=== PATIENT | male | born 1985 | race Caucasian/White ===

== ENCOUNTER 2020-12-12 12:17 | Emergency (ER) | payer OTHER, SELFPAY ==
[2020-12-12 12:28] VITALS: BP 148/82; PULSE 77; RESP 20; TEMP 36.4; O2SAT 98
--- NOTE | 2020-12-12 12:30 | ED.GENADULT ---
HPI - General Adult General Chief complaint: Ear Stated complaint: L/ear pain Time Seen by Provider: 12/12/20 12:30 Source: patient and RN notes reviewed Mode of arrival: ambulatory Limitations: no limitations History of Present Illness HPI narrative: 35-year-old male presents with complaints of left otalgia and decrease hearing for the past 5 days. Dustin reports increase pain with clog feeling in LT ear over the past 24 hours. No treatment. Dustin reports he has been cleaning ears with q-tips and wears ear plugs at work. Denies drainage or tinnitus. Denies injury to ear. Denies rhinorrhea and nasal congestion. Denies cough. No high fevers or chills. Denies nausea, vomiting, and dizziness. The patient reports he have not been diagnosed with COVID-19. The patient reports he is not waiting for the results of a COVID-19 lab test. The patient reports he do not have fever, weakness, or fatigue. The patient reports he do not have a new or worsening cough or shortness of breath. Denies chest pain. The patient reports he do not have any loss of taste, sore throat, abdominal pain, and diarrhea. Tolerating po intake well. Denies recent traveling. Denies concerns for COVID-19 or exposures been home with limited outdoor exposure except for essential household needs, work, and return home. At this time, patient is not suspected of having COVID-19. Some parts of this dictation were generated by voice recognition software and may contain typographical and/or grammatical inaccuracies. Related Data Home Medications Medication Instructions Recorded Confirmed Fish Oil DAILY 12/12/20 bupropion HCl 150 mg PO DAILY 12/12/20 12/12/20 buspirone 15 mg DAILY 12/12/20 12/12/20 escitalopram oxalate 20 mg DAILY 12/12/20 12/12/20 lorazepam 1 mg BID PRN 12/12/20 12/12/20 Allergies Allergy/AdvReac Type Severity Reaction Status Date / Time hydroxyzine Allergy Unknown Rash Verified 12/12/20 12:20 Review of Systems Review of Systems: Narrative: CONSTITUTIONAL: Denies fever, chills, sweats. EYES: Denies visual changes, redness, discharge. ENT: Denies sore throat, ear drainage, rhinorrhea, congestion. Complains of LT otalgia, decrease hearing. CARDIOVASCULAR: Denies chest pain, palpitations, edema. RESPIRATORY: Denies dyspnea, wheezing, cough. GASTROINTESTINAL: Denies abdominal pain, nausea, vomiting, diarrhea. SKIN: Denies rash or itching. MUSCULOSKELETAL: Denies acute back pain, joint pain, or myalgia. NEUROLOGIC: Denies numbness or focal weakness. PSYCHIATRIC: Denies anxiety or depression. All systems reviewed & are unremarkable except as noted in HPI and below. [facility] Past Medical History Medical History Depression Vitamin D deficiency Surgical History Surgical History (Updated 12/12/20 @ 19:25 by MIKE Sommer) History of tympanostomy as a kid Family History Family History Mother Patient's mother is in good health Father Patient's father is in good health Sibling Patient's brother is in good health Social History Social History Smoking status: Never smoker Tobacco type: cigarettes Second hand tobacco smoke exposure: No Alcohol intake: current Substance use: never Living arrangements: with family Additional living arrangements comments: spouse Occupation/Education: occupation Gender identity (if verbalized by the patient): Male Sexual Orientation (if Verbalized by the Patient): Straight or Heterosexual Comments At time of signature, agree with nurse past medical, surgical, social, and family history. There is relevant patient's past medical history pertinent to the presenting complaint, no relevant family history pertinent to the presenting complaint. Exam Narrative: Exam Narrative: GENERAL: This is a
== END 2020-12-12 12:55 | disposition home or self-care (01) ==
PROVIDERS: Emergency Provider Nurse Practitioner Family; PCP Internal Medicine
DX: H66.012 Acute suppurative otitis media with spontaneous rupture of ear drum, left ear (principal); F32.9 Major depressive disorder, single episode, unspecified; F41.9 Anxiety disorder, unspecified
CPT/HCPCS: 99213; G0463

== ENCOUNTER 2021-03-13 17:17 | Outpatient (CLI) | payer OTHER, SELFPAY | END 2021-03-13 17:18 | disposition home or self-care (01) | LOC: ANHCOVIDVC 17:18 | PROVIDERS: PCP Internal Medicine | DX: Z23 Encounter for immunization (principal) | CPT/HCPCS: 0001A; 91300 ==

== ENCOUNTER 2021-04-19 16:59 | Outpatient (CLI) | payer OTHER, SELFPAY | END 2021-04-19 17:00 | disposition home or self-care (01) | LOC: ANHCOVIDVC 16:59 | PROVIDERS: PCP Internal Medicine | DX: Z23 Encounter for immunization (principal) | CPT/HCPCS: 0002A; 91300 ==

== ENCOUNTER 2023-09-04 09:23 | Outpatient (CLI) | payer OTHER, SELFPAY ==
--- NOTE | 2023-09-04 09:57 | EST_ITS ---
Patient Info Name: Dustin Steinberg Age: 38 years : 1985 Gender: Male Ht: 72 in Wt: 250 lbs BSA: 2.44 m2 HR: 76 bpm BP: 128 / 77 mmHg Heart Rhythm: Sinus Rhythm Exam Date: 09/04/2023 10:05 AM Exam Location: [facility] Stress Patient Status: Outpatient Admit Date: 09/04/2023 Staff Ordering Physician: Lj Spear DO Attending Provider: Lj Spear DO Exercise Technologist: Molly Sibley CT Exercise Physician: Jn Anthony DO Exam Type: CA stress test treadmill Study Info Indications R07.89 - Other chest pain A treadmill exercise stress test was performed. Summary 1. 1. Negative [place] exercise stress test for ischemic ST changes by ECG criteria. 2. 2. Good functional capacity, achieving 11 METs of workload. 3. 3. Hypertensive response to exercise. 4. 4. Appropriate HR response to exercise. 5. 5. Appropriate HR recovery at 1 minute post exercise. 6. 6. No imaging with stress testing. 7. 7. Patient informed of the above results. Protocol: [place] Stress ECG Details Stage: REST Duration (min): 1 min : 10 sec Speed (mph): 0.0 Grade (%): 0 HR (bpm): 74 SBP (mmHg): 128 DBP (mmHg): 77 METS: --- Stage: REST Duration (min): 4 min : 52 sec Speed (mph): 0.0 Grade (%): 0 HR (bpm): 77 SBP (mmHg): 128 DBP (mmHg): 77 METS: --- Stage: STAGE 1 Duration (min): 1 min : 0 sec Speed (mph): 1.7 Grade (%): 10 HR (bpm): 97 SBP (mmHg): 128 DBP (mmHg): 77 METS: --- Stage: STAGE 1 Duration (min): 2 min : 0 sec Speed (mph): 1.7 Grade (%): 10 HR (bpm): 100 SBP (mmHg): 128 DBP (mmHg): 77 METS: --- Stage: STAGE 1 Duration (min): 3 min : 0 sec Speed (mph): 1.7 Grade (%): 10 HR (bpm): 102 SBP (mmHg): 143 DBP (mmHg): 79 METS: --- Stage: STAGE 2 Duration (min): 1 min : 0 sec Speed (mph): 2.5 Grade (%): 12 HR (bpm): 113 SBP (mmHg): 143 DBP (mmHg): 79 METS: --- Stage: STAGE 2 Duration (min): 2 min : 0 sec Speed (mph): 2.5 Grade (%): 12 HR (bpm): 121 SBP (mmHg): 188 DBP (mmHg): 60 METS: --- Stage: STAGE 2 Duration (min): 3 min : 0 sec Speed (mph): 2.5 Grade (%): 12 HR (bpm): 121 SBP (mmHg): 188 DBP (mmHg): 60 METS: --- Stage: STAGE 3 Duration (min): 1 min : 0 sec Speed (mph): 3.4 Grade (%): 14 HR (bpm): 137 SBP (mmHg): 195 DBP (mmHg): 75 METS: --- Stage: STAGE 3 Duration (min): 2 min : 0 sec Speed (mph): 3.4 Grade (%): 14 HR (bpm): 138 SBP (mmHg): 195 DBP (mmHg): 75 METS: --- Stage: STAGE 3 Duration (min): 3 min : 0 sec Speed (mph): 3.4 Grade (%): 14 HR (bpm): 146 SBP (mmHg): 212 DBP (mmHg): 76 METS: --- Stage: STAGE 4 Duration (min): 0 min : 54 sec Speed (mph): 4.2 Grade (%): 16 HR (bpm): 146 SBP (mmHg): 212 DBP (mmHg): 76 METS: --- Stage: RECOVERY Duration (min): 0 min : 5 sec Speed (mph): 1.5 Grade (%): 0 HR (bpm):
== END 2023-09-04 09:24 | disposition home or self-care (01) ==
PROVIDERS: PCP Internal Medicine; Visit Provider Internal Medicine
DX: R07.9 Chest pain, unspecified (principal)
CPT/HCPCS: 93017

== ENCOUNTER 2025-01-03 16:28 | Emergency (ER) | payer OTHER, SELFPAY ==
--- OUTSIDE RECORDS SUMMARY | 2025-01-03 16:30 | XMS_ITS | Clinical Summary ---
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 Gender Identity Not on file Sexual Orientation Not on file Plan of Treatment Health Maintenance Due Date Last Done Comments Annual Physical 1986 Hepatitis C 2001 DTaP, Tdap and Td Vaccines ( 1 - Tdap) 2002 Hepatitis B Vaccines (1 of 3 - 19+ 3-dose series) 2002 COVID-19 Vaccine (2023-2 5 season) 2024 Influenza Adult (#1) 2024 HPV Vaccines Aged Out No longer eligi ble based on patient's age to complete this topic Meningococcal B Vaccine Aged Out No l onger eligible based on patient's age to complete this topic Meningococcal Vaccine Aged Out No naty velma eligible based on patient's age to complete this topic Pneumococcal Vaccine: Pediat rics (0 to 5 Years) and At-Risk Patients (6 to 64 Years) Aged Out No longer eligible b ased on patient's age to complete this topic RSV Immunizations Under 20 Months Aged Out No longer eligible based on patient's age to complete this topic
--- OUTSIDE RECORDS SUMMARY | 2025-01-03 16:30 | XMS_ITS | Referral Summary ---
Author Organization [facility] [address] [facility] [address] Address [address] [place] [address] Care Team Providers Care Grade Foreman Name Role Phone Lj Spear DO Primary Care Provider [phone]- [phone] Allergies No known active allergies Medications buPROPion XL (WELLBUTRIN XL) 150 mg 24 hr tablet 1 Active escitalopram (LEXAPRO) 20 mg tablet 1 Active ondansetron ODT (Zofran ODT) 4 mg disintegrating tabletIndications:N ausea Take 1 tablet (4 mg total) by mouth every 8 (eight) hours as needed for nausea or vomiting 12 tablet 1 Active Active Problems No known active problems Social History Tobacco Use Types Packs/Day Years Used Date Smoking Tobacco: Never Smokeless Tobacco: Never Personal Safety Answer Date Recorded Getting School Help Needed Not on file 01/26 Sex and Gender Information Value Date Recorded Sex Assigned at Not on file 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 Gender Identity Not on file Sexual Orientation Not on file Last Filed Vital Signs Vital Sign Reading Time Taken Comments Blood Pressure 148/90 04/10/2021 5:13 PM CDT Pulse 79 04/10/2021 5:13 PM CDT Temperature 36.8 ??C (98.3 ??F) 04/10/2021 5:13 PM CD T Respiratory Rate 18 04/10/2021 5:13 PM CDT Oxygen Saturation 98% 04/10/2021 5:13 PM CDT Inhaled Oxygen Concentration - - Weight 107.5 kg (237 lb) 04/10/2021 5:13 PM CDT Height 185.4 cm (6' 1 ) 04/10/2021 5:13 PM CDT Body Mass Index 31.27 04/10/2021 5:13 PM CDT Plan of Treatment Not on file Insurance [facility] H[facility]/PPO Address: [address] [place] [address] [facility] HMO/PPO Address: [address] [address] [place] [address] Care Teams Grade Foreman Relationship Specialty Start Date End Date Lj Spear DO PCP - General Internal Medicine 04/10/21
--- OUTSIDE RECORDS SUMMARY | 2025-01-03 16:30 | XMS_ITS | Clinical Summary ---
Author Organization [facility] [place] [address] [facility] [address] Address [address] [place] [address] Care Team Providers Care Gang Pusher Name Role Phone Lj Spear DO Primary Care Provider [phone]- [phone] Allergies No known active allergies Medications buPROPion XL (WELLBUTRIN XL) 150 mg 24 hr tablet 1 Active escitalopram (LEXAPRO) 20 mg tablet 1 Active ondansetron ODT (Zofran ODT) 4 mg disintegrating tabletIndications:N ausea Take 1 tablet (4 mg total) by mouth every 8 (eight) hours as needed for nausea or vomiting 12 tablet 1 Active Active Problems No known active problems Surgical History Surgery Date Site/Laterality Comments OTHER SURGICAL HISTORY No pertinent surgical history Medical History Medical History Date Comments Depression Social History Tobacco Use Types Packs/Day Years Used Date Smoking Tobacco: Never Smokeless Tobacco: Never Personal Safety Answer Date Recorded Getting School Help Needed Not on file 01/26 Sex and Gender Information Value Date Recorded Sex Assigned at Not on file 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
[2025-01-03 17:25] VITALS: BP 134/77; PULSE 67; RESP 18; TEMP 36.4; O2SAT 98
--- NOTE | 2025-01-03 18:19 | ED.URI ---
HPI - URI/Sore Throat General Chief Complaint: Upper Respiratory Infection Stated Complaint: sinus infection Time Seen by Provider: 01/03/25 18:19 Source: patient, RN notes reviewed and old records reviewed Mode of arrival: ambulatory Limitations: no limitations History of Present Illness HPI Narrative: 10 day sinus drainage, pain ,pressure , postnasal drainage. He has been using [id number] medications intermittently for his symptoms with moderate relief. He reports that in the middle of his illness he felt as though he is getting better, but over the past couple days has felt much worse than usual. He reports over the past few days he has been more tired than normal. He denies any injury or trauma. He is not in any distress Related Data Home Medications ?Medication ?Instructions ?Recorded ?Confirmed ?Last Taken ?Type escitalopram oxalate 20 mg tablet 20 mg DAILY 12/12/20 11/28/24 Unknown History lorazepam 1 mg tablet 1 mg BID PRN Anxiety 12/12/20 11/28/24 Unknown History Allergies Allergy/AdvReac Type Severity Reaction Status Date / Time Hydroxizine Allergy Intermediate Agitated Uncoded 01/03/25 18:23 Review of Systems Review of Systems: All systems reviewed & are unremarkable except as noted in HPI and below Constitutional: Constitutional: Reports as per HPI, Reports no additional constitutional complaints, Reports headache(s) and Reports lethargy ENT: Reports system reviewed and no additional complaints, except as documented, Reports nasal congestion, Reports nasal discharge, Reports sinus pain, Reports sinus pressure and Reports sore throat Cardiovascular: Cardiovascular: Reports no additional cardiovascular complaints Respiratory: Respiratory: Reports no additional respiratory complaints and Reports cough Gastrointestinal: Gastrointestinal: Reports no additional gastrointestinal complaints [facility] Past Medical History Medical History GERD (gastroesophageal reflux disease) Bronchitis Pneumonia Hypertension Chicken pox Left knee pain Vitamin D deficiency Depression Surgical History Surgical History History of tympanostomy as a kid Family History Family History Mother Patient's mother is in good health Father Patient's father is in good health Sibling Patient's brother is in good health Social History Social History (Reviewed 01/03/25 @ 18:26 by JONATHON Szymanski Smoking status: Never smoker Tobacco type: cigarettes Second hand tobacco smoke exposure: No Alcohol intake: current Substance use: never Lack of Transportation: No Lack of Food: Never True Current Housing: I Have Housing Concerned About Future Housing: No Difficulty Paying Gas/Electric Bills: No Difficulty Paying for Meds: No Currently Unemployed: No Education: Bachelor's Degree Difficulty w/ Childcare or Family Care: No Living arrangements: with family Additional living arrangements comments: spouse Occupation/Education: occupation Gender identity (if verbalized by the patient): Male Sexual Orientation (if Verbalized by the Patient): Straight or Heterosexual Comments At the time of my signature, I reviewed and agree with the nursing past medical, surgical, social, and family history. There is no relevant family history pertinent to the patient complaint. Exam Const: General: cooperative, no acute distress, alert and awake Orientation/consciousness: oriented to person, oriented to place and oriented to time HENMT: Head: normal to inspection Ears: TM abnormal dull bilateral Face and sinus: sinus tenderness Mouth: Yes moist mucous membranes Throat: posterior oropharynx abnormal erythema and postnasal drainage Resp: Effort & Inspection: normal respiratory effort and able to speak in complete sentences Auscultation: clear to auscultation bilaterally, no crackles, no rales, no rhonchi and no wheezes Cardio: Palpation: normal PMI Rate: regular rate Rhythm: regular rhythm Heart sounds: S1 normal heart sound present and S2 normal heart sound present Neuro: General: oriented to person, oriented to place and oriented to time Cranial nerves: Yes CN's II-XII intact bilaterally Psych: Appearance: grossly normal Thought process: Normal thought process present Insight: Good insight present (Psych) Judgement: Good judgement present (Psych) Course Course Level of Care: Express Care Visit Vital Signs Vital signs: Vital Signs Temperature 97.6 F 01/03/25 17:25 Pulse Rate 67 01/03/25 17:25 Respiratory Rate 18 01/03/25 17:25 Blood Pressure 134/77 01/03/25 17:25 Pulse Oximetry 98 01/03/25 17:25 Oxygen Delivery Room Air 01/03/25 17:25 Temperature 97.6 F 01/03/25 17:25 Pulse Rate 67 01/03/25 17:25 Respiratory Rate 18 01/03/25 17:25 Blood Pressure 134/77 01/03/25 17:25 Pulse Oximetry 98 01/03/25 17:25 Oxygen Delivery Room Air 01/03/25 17:25 Reviewed MDM - URI/Sore Throat MDM Narrative Medical decision making narrative: history and exam consistent with sinusitis. Patient is nontoxic appearing, stable for discharge home on p.o. antibiotic therapy. Discharge instructions reviewed with patient, as well as provided in writing per nursing staff. The instructions also include specific and strict return/GO TO THE ER as well as f/u information. All questions have been answered, and the patient deny any further questions with discharge and discharge plan. Some parts of this dictation were generated by voice recognition software and may contain typographical and/or grammatical inaccuracies. Differential Diagnosis Differential diagnosis: Likely upper respiratory infection, otitis media, sinusitis and viral infection Medical Records Attestation: I reviewed the patient's medical records. Discharge Plan Discharge Clinical Impression: Sinusitis Qualifiers: Sinusitis location: unspecified location Chronicity: acute Recurrence: not specified as recurrent Qualified Code(s): J01.90 - Acute sinusitis, unspecified Patient Disposition: Home, Self-Care Condition: Stable Instructions: Antibiotic Form, Sinusitis (ED) Additional Instructions: take medications as prescribed. Follow-up with primary care provider. Emergency department for any new or worsening symptoms Patient Language: Serbian Prescriptions: New amoxicillin-pot clavulanate 875-125 mg tablet 1 tablet PO Q12H Qty: 14 0RF No Action lorazepam 1 mg tablet 1 mg BID PRN (Reason: Anxiety) escitalopram oxalate 20 mg tablet 20 mg DAILY propranolol 40 mg tablet 40 mg PO Q12H Qty: 60 5RF Follow-up/Referrals: Lj Spear DO [Primary Care Provider] - 2 Weeks Time of Disposition: 18:27
== END 2025-01-03 18:40 | disposition home or self-care (01) ==
PROVIDERS: Emergency Provider Nurse Practitioner Family; PCP Internal Medicine
DX: J01.90 Acute sinusitis, unspecified (principal); I10 Essential (primary) hypertension
CPT/HCPCS: 99213; G0463